=== PATIENT | female | born 1965 | race Caucasian/White ===

== ENCOUNTER 2023-11-30 16:24 | Outpatient (REF) | payer OTHER, SELFPAY ==
--- NOTE | ~2023-11-30 | XR_ITS ---
EXAMINATION: XR CHEST CLINICAL INFORMATION: COUGH COMPARISON: None available. TECHNIQUE: 2 views of the chest were obtained. FINDINGS: Submitted for interpretation on February 08, 2024. Patchy and linear opacity right lower hemithorax. No pneumothorax. No gross pleural effusion. Cardiomediastinal silhouette is normal in size. Calcified plaque thoracic aortic arch. Multilevel thoracic spondylosis. Osteopenia versus osteoporosis. XR/XR chest 2V IMPRESSION: Airspace disease, right lower lung lobe. Recommend follow-up until resolution since underlying neoplasm cannot be excluded. Electronically signed by: Kenrick Fernando MD 02/08/2024 09:49 AM EST
[2023-11-30 16:42] LABS: MANUAL DIFF FLAG NO
[2023-11-30 18:33] LABS: Basophils Absolute Auto 0.1 X10*3/uL (0.0-0.2); Basophils Percent Auto 0.5 % (0-2); Eosinophils Absolute Auto 0.5 X10*3/uL (0.0-0.4); Eosinophils Percent Auto 5.3 % (0-4); Hematocrit 39.1 % (37.0-47.0); Hemoglobin 13.9 g/dl (12.0-16.0); Imm Gran Abs Auto 0.07 X10*3/uL (0.00-0.03); Imm Gran Pct Auto 0.7 % (0.0-0.4); Lymphocytes Absolute Auto 1.4 X10*3/uL (1.2-4.9); Mean Corpuscular HGB Conc 35.5 g/dl (31.0-35.0); Mean Corpuscular Hemoglobin 33.3 pg (27.0-33.0); Mean Corpuscular Volume 93.5 fL (80.0-98.0); Mean Platelet Volume 10.4 fL (9.4-12.3); Monocytes Absolute Auto 0.6 X10*3/uL (0.1-1.2); Monocytes Percent Auto 6.3 % (2-11); Neutrophils Absolute Auto 6.8 x10*3/uL (2.0-8.3); Neutrophils Percent Auto 72.2 % (45-73); Platelet Count 183 X10*3/uL (160-400); Red Blood Count 4.18 X10*6/uL (4.20-5.50); Red Cell Distribution Width 12.5 % (11.0-16.0); White Blood Count 9.5 X10*3/uL (4.8-10.8)
[2023-11-30 18:40] LABS: Anion Gap 15 (12-20); Blood Urea Nitrogen 13 mg/dL (9-16); Calcium 9.4 mg/dL (8.4-10.2); Carbon Dioxide 25 mmol/L (22-29); Chloride 104 mmol/L (96-108); Estimated Glomerular Filt Rate > 60; Glucose Random 109 mg/dL (60-115); Potassium 4.2 mmol/L (3.3-5.1); Sodium 140 mmol/L (135-145)
[2023-12-01 07:41] LABS: Estimated Average Glucose 123 mg/dL; Hemoglobin A1C 143.3844 umol/L; Hemoglobin A1c % 5.9 % (<6.0)
== END 2023-11-30 16:25 | disposition home or self-care (01) ==
LOC: HO.XRAY 16:24
PROVIDERS: PCP Internal Medicine; Visit Provider Internal Medicine
DX: R05.9 Cough, unspecified (principal); R73.03 Prediabetes
CPT/HCPCS: 36415; 71046; 80048; 83036; 85025

== ENCOUNTER → 2023-11-30 16:42 | Outpatient (BNV) | payer OTHER, SELFPAY | PROVIDERS: PCP Internal Medicine; Visit Provider Radiology Diagnostic Radiology | DX: R05.9 Cough, unspecified (principal) | CPT/HCPCS: 71046 ==

== ENCOUNTER 2025-02-14 16:21 | Outpatient (AMB) | payer OTHER, SELFPAY ==
--- NOTE | 2025-02-14 16:32 | MHC.PC.OV ---
Vital Signs 02/14/25 16:41 02/14/25 17:01 Height 5 ft 2 in Weight 84.141 kg BMI 33.9 BP 156/72 H 154/80 H Respiration 16 Pulse 66 Pulse Source Pulse Oximeter Temp 98.0 F Temp Source Temporal Artery Scan Pulse Oximetry (%) 98 Oxygen Delivery Method Room Air Intake Visit Reasons: DANA/Croke - see comments Service Desk Specialist Required: No Accompanied by: Self / Same As Patient Allergies Seasonal Allergies Allergy (Intermediate, Verified 02/14/25 16:37) Unknown Percocet Adverse Reaction (Intermediate, Uncoded 02/14/25 16:37) Abdominal Pain Medication List - Last Reconciled 02/14/25 by MARA Dean amoxicillin-pot clavulanate 875-125 mg 1 tab PO BID cholecalciferol (vitamin D3) 50 mcg PO DAILY [vit b12 PO] vit C-zinc citrate-elderberry 45-3.75-50 mg (Elderberry [facility]) tabs PO Tobacco use date assessed: 02/14/25 Dental Screening Dental Screen Date: 02/14/25 Did you have a dental visit in the last 12 months?: Yes Did you have a dental problem in the last 6 months where you did not have access to dental care?: No Was dental information given to patient?: Patient has dentist HPI HPI Comments History of Present Illness Details 59-year-old female presenting to the office today for annual physical exam and to establish care. She currently lives by herself and with her dog and feels safe there. 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 She has never used cigarettes. Occasional alcohol use. No drug use. Follows a healthy diet. Concerns: URI symptoms ongoing for 1 month. Inititally had URI then in chest. She has been using Sudafed for 24-36 hours which did help somewhat. However, she still has rhinorrhea, PND, mildly productive cough. Right ear feels blocked and there is clear/opaque yellow mucus. Denies any fevers or chills. No significant sinus pressure. Has also been using Flonase but not any antihistamine. No dyspnea, wheezing, chest pains. Reports snoring with question of apneic episodes Health maintenance: Overdue for closing agent, needs referral Overdue for mammogram Eye exam is up-to-date Dental exams twice yearly Colonoscopies Wear sun protection Reviewed past medical, surgical, social, family history ROS: General: No fevers, malaise, unintentional weight loss HEENT: No blurred vision, diplopia. No sore throat, nasal congestion, rhinorrhea, sinus pain, ear pain. No hearing loss Neck - no adenopathy Cardiovascular: No chest pain, palpitations, or leg edema Respiratory: No shortness of breath, wheezing, cough Breast: No pain, palpable lumps, nipple inversion GI: No dysphagia, odynophagia, globus sensation. No abdominal pain, nausea, vomiting, diarrhea, constipation, melena, hematochezia : No dysuria, hematuria, increased urinary frequency, decreased urinary output. 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 No AH/VH. No SI/HI Skin: No rashes or lesions EXAM: Constitutional - Awake and Alert, No apparent distress Eyes - PERRLA, EOMI. Anicteric Ears - external ears normal, canals clear, TMs intact and pearly tucker with good cone of light Nose- septum midline, nares clear, no sinus tenderness Mouth/throat- mucosa moist, tongue and uvula midline, no erythema/edema or tonsillar adenopathy. Neck-trachea midline, thyroid symmetric without palpable nodules, no adenopathy Cardiovascular - S1S2, RRR, No edema Respiratory - Normal lung expansion, Normal respiratory effort, No respiratory distress, CTA bilaterally Gastrointestinal - NT / ND; +BS; No rebound or guarding - No CVA tenderness Extremities - no calf tenderness bilaterally, no swelling Musculoskeletal - Normal inspection, normal ROM Skin - Warm/Dry, no concerning lesions Neurological - Alert & oriented x3, CN II-XII in tact, 5/5 strength BUE and BLE, 2+ patellar reflexes, sensation intact Psychological - Appropriate affect [facility] Medical History (Updated 02/17/25 @ 12:38 by MARA Dean) Vitamin D deficiency Obesity Surgical History (Updated 02/14/25 @ 16:58 by MARA Dean) History of left salpingectomy S/P ectopic History of ankle surgery S/P knee surgery Status post cholecystectomy Family History (Updated 02/17/25 @ 12:37 by MARA Dean) Other No significant family history Social History Housing: House Patient Tobacco Use Status: Never used Tobacco e-Cigarette/Vaping Use: Never Used service: No Current occupational status: employed 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 How often do you have six or more drinks on one occasion?: Never Total Score: 0 Physical exam (Primary Care) Vital Signs: Last Vital Signs Temp 98.0 F 02/14/25 16:41 Pulse 66 02/14/25 16:41 Resp 16 02/14/25 16:41 BP 154/80 H 02/14/25 17:01 Pulse Ox 98 02/14/25 16:41 Oxygen Delivery Method Room Air 02/14/25 16:41 BMI result Body Mass Index 33.9 Tobacco/Smoking Status: Tobacco use Status Tobacco use date assessed 02/14/25 02/14/25 16:40 Patient Tobacco Use Status Never used Tobacco 02/14/25 16:40 e-Cigarette/Vaping Use Never Used 02/14/25 16:40 Coding Level of Care Code New Pt Prev Care 40-64y(74775) Diagnoses Routine medical exam Z00.00 Sinusitis J32.9 Sleep apnea G47.30 Obesity E66.9 Assessment & Plan Assessment & Plan (1) Routine medical exam: Code(s): Z00.00 - Encounter for general adult medical examination without abnormal findings Category: Medical Plan: 59-year-old female presenting for annual exam and to establish care. Plan as below (2) Sinusitis: Code(s): J32.9 - Chronic sinusitis, unspecified Category: Medical Plan: Augmentin prescribed. Recommend nasal rinses. Continue Flonase and add oral antihistamine. (3) Sleep apnea: Code(s): G47.30 - Sleep apnea, unspecified Category: Medical Plan: Sleep study ordered (4) Obesity: Code(s): E66.9 - Obesity, unspecified Category: Medical Plan: Recommend diet lower in calories with increased protein, fruits, vegetables. Limit refined sugars, simple carbohydrates, highly processed foods. Recommend weight-bearing and moderate intensity exercise for at least 150 minutes weekly. Plan Routine screening labs as ordered below screening mammograms, Pap smears, colonoscopies- referrals placed Continue following for annual skin exams and use sun protection Annual eye exams Dental exams every 2 years Wear seat belt in car Recommend regular exercise and healthy diet Follow-up in 2 weeks for blood pressure check Orders: Orders RT home sleep study 02/14/25 E66.9 - Obesity, unspecified, G47.30 - Sleep apnea, unspecified, R06.83 - Snoring XR chest 2V 02/15/25 R05.9 - Cough, unspecified, R93.89 - Abnormal findings on diagnostic imaging of other specified body structures Basic Metabolic Panel 02/15/25 E55.9 - Vitamin D deficiency, unspecified, Z00.00 - Encounter for general adult medical examination without abnormal findings Complete Blood Count Auto Diff 02/15/25 E55.9 - Vitamin D deficiency, unspecified, Z00.00 - Encounter for general adult medical examination without abnormal findings Lipid Panel 02/15/25 E55.9 - Vitamin D deficiency, unspecified, Z00.00 - Encounter for general adult medical examination without abnormal findings Vitamin D 25-OH Total 02/15/25 E55.9 - Vitamin D deficiency, unspecified, Z00.00 - Encounter for general adult medical examination without abnormal findings Hemoglobin A1c 02/15/25 E55.9 - Vitamin D deficiency, unspecified, Z00.00 - Encounter for general adult medical examination without abnormal findings Liver Panel 02/15/25 E55.9 - Vitamin D deficiency, unspecified, Z00.00 - Encounter for general adult medical examination without abnormal findings TSH reflex Free T4 02/15/25 E55.9 - Vitamin D deficiency, unspecified, Z00.00 - Encounter for general adult medical examination without abnormal findings Vitamin B12 02/15/25 E53.8 - Deficiency of other specified B group vitamins MM tomosynthesis screening BI 02/14/25 Z12.31 - Encounter for screening mammogram for malignant neoplasm of breast Referrals 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
[2025-02-14 16:41] VITALS: BP 156/72; PULSE 66; RESP 16; TEMP 36.7; O2SAT 98; BMI 33.9
[2025-02-14 17:01] VITALS: BP 154/80
--- OUTSIDE RECORDS SUMMARY | 2025-02-14 22:56 | XMS_ITS | Clinical Summary ---
Author Organization [facility] Address [address] [facility] [address] [place] [id number] Phone Care Team Providers Care Corporate Tutor Name Role Phone Van Hidalgo MD Primary Care Provider Allergies No known active allergies Medications naproxen (NAPROSYN) 250 MG tablet Take 250 mg by mouth 2 (two) times a day with meals. Active cetirizine (ZYRTEC) 10 MG tablet Take 10 mg by mouth daily. Active fluticasone propionate (FLONASE) 50 mcg/actuation nasal spray 1 spray by Nasal route daily. Active methylPREDNISol one (MEDROL DOSEPACK) 4 mg tablet follow package directions 21 tablet 4 Active Active Problems No known active problems Immunizations Immunization Administration Dates Next Due Tdap 03/07/2016 Social History Tobacco Use Types Packs/Day Years Used Date Smoking Tobacco: Never Smokeless Tobacco: Never Tobacco Cessation:Counseling Given: Not Answered Alcohol Use Standard Drinks/Week Comments Yes 0 (1 standard drink = 0.6 oz pur e alcohol) socially Education Answer Date Recorded Are you interested in more education? Not on nasim e 07/04/2022 Are you concerned about learning? Not on file 07/04/2022 No 07/04/2022 No 07/04/2022 Digital Access Answer Date Recorded No 08/02/2022 No 08/02/2022 Reliable internet access at home? Not on file 08/02/2022 Device with a working camera? Not on file Comments Unknown Sex and Gender Information Value Date Recorded Sex Assigned at Not on file Legal Sex Female 5:13 PM EDT Gender Identity Not on file Sexual Orientation Not on file Last Filed Vital Signs Vital Sign Reading Time Taken Comments Blood Pressure 164/95 02/12/2024 10:27 AM EST Pulse 63 02/12/2024 10:27 AM EST Temperature 36.7 C (98 F) 02/12/2024 10:27 AM EST Respiratory Rate 18 02/12/2024 10:27 AM EST Oxygen Saturation 98% 02/12/2024 10:27 AM EST Inhaled Oxygen Concentration - - Weight 84.4 kg (186 lb) 03/05/2022 5:07 PM EST Height 157.5 cm (5' 2 ) 03/05/2022 5:07 PM EST Body Mass Index 34.02 03/05/2022 5:07 PM EST Plan of Treatment Health Maintenance Due Date Last Done Comments LIPID PANEL 1963 DEPRESSION SCREENING 1975 HEPATITIS C SCREENING 06/22/1981 HIV ONE-TIME SCREENING (18-6 5 YEARS) 06/22/1981 PAP SMEAR 06/22/1984 SCREENING FOR DIABETES 06/22/1998 MAMMOGRAM 2003 COLOGUARD 06/22/2008 COLONOSCOPY 06/22/2008 COLORECTAL CANCER SCREENING 06/22/2008 FIT TEST 06/22/2008 FOBT 06/22/2008 SIGMOIDOSCOPY 06/22/2008 VIRTUAL COLONOSCOPY 06/22/2008 PNEUMOCOCCAL VACCINES (50+ y ears) (1 of 1 - PCV) 06/22/2013 ZOSTER VACCINES (1 of 2) 06/22/2013 INFLUENZA VACCINE (#1) 2024 COVID-19 VACCINE (2 - 2024-2 6 season) 2024 07/13/2020 Adult Td,Tdap Booster 03/07/2026 03/07/2016 RSV VACCINE (1 - 1-dose 75+ series) 06/22/2038 SMOKING STATUS SCREENING (On ce After 26 Yrs) Completed 02/12/2024 HEPATITIS A VACCINES Aged Out No long er eligible based on patient's age to complete this topic HIB VACCINES Aged Out No longer eligi ble based on patient's age to complete this topic MENINGOCOCCAL VACCINES (ACWY) Aged Out No longer eligible based on patient's age to complete this topic MENINGOCOCCAL VACCINES (B) Aged Out N o longer eligible based on patient's age to complete this topic Medical Devices Not on file Insurance O O O O O O O HMO Care Teams Corporate Tutor Relationship Specialty Start Date End Date Van Hidalgo MD [address] [place] [id number] PCP - General Internal Medicine 12/02/18 Additional Source Comments The information contained in this document represents components of the legal health record. It is not the complete legal health record.[facility]
--- OUTSIDE RECORDS SUMMARY | 2025-02-14 22:56 | XMS_ITS | Data Portability ---
Author Organization MARA Donovan [facility] [address] Address [address] [place] [address] Assessment Encounter Date Assessment Date Assessment LastModified by Organization Details LastModified Time 11/23/2023 11/23/2023 Acute bronchitis is a common clinical condition characterized by an acute onset but persistent cough, with or without sputum production. It is typically self-limited, resolving within one to three weeks. Symptoms result from inflammation of the lower respiratory tract and are most frequently due to viral infection. Treatment is focused on patient education and supportive care. Antibiotics are not needed for the great majority of patients with acute bronchitis but are greatly overused for this condition. Reducing antibiotic use for acute bronchitis is a national and international health care priority. In most patients, the cough persists for 1 to 3 weeks, with a average duration of 18 days. The cough may be associated with either purulent or nonpurulent sputum production The presence of purulent sputum is a nonspecific finding and does not appear to be predictive of bacterial infection or that antibiotics are needed. For the great majority of patients, use of antibiotics does not hasten recovery or prevent complications but puts patients at increased risk of adverse effects including potentially severe complications such as Clostridioides difficile infection and anaphylaxis. Non-Pharmacological treatment for coughin. Throat lozenges 2. Hot tea 3. Honey 4. Smoking cessation 5. Avoidance of secondhand smoke. Pharmacological Treatment: 1. Robatussin or Guafenasin 2. Antihistamines 3. Dextromethoraphen I would plan on being seen again if any of the following symptoms develop: 1. Fever (100.5) 2. Shortness of breath 3. Wheezing 4. Worsening Cough. I would go to the ER if you develop: 1. Severe Shortness of breath 2. Chest Pain 3. Wheezing 4. Coughing up Blood ronchaga Not available 11/23/2023 09:42:40 Plan of Treatment Reminders Order Date Submit Date Provider Last Modified By Organization Details Last Modified Time Details Appointments None recorded. Lab SARS CoV 2 (COVID-19) Ag, QL, IA, upper respiratory specimen 2023 024 [address], [address] [place], [address], 4 09:43:09 Referral None recorded. Procedures None recorded. Surgeries None recorded. Imaging None recorded. Medication Orders prednisone 50 mg tablet 2023 024 [facility] #[id number], [address] [place], [address], 4 09:43:20 benzonatate 200 mg capsule 2023 024 [id number] [address] [place], [address], 4 09:43:18 albuterol sulfate HFA 90 mcg/actuati on aerosol inhaler 2023 024 [id number] [address] [place], [address], 4 09:43:19 Patient TargetsNo targets recorded. Patient Instructions Encounter Date Encounter Id Patient Instructions Last Modified By Organization Details Last Modified Time 11/23/2023 [id number] bronchitis: care instructions ronchaga Not available 11/23/2023 09:43:06 cough: care instructions ronchaga Not available 11/23/2023 09:43:06 Reason for Referral None Reported. Results Created Date Observation Date Name Description Value Unit Range Abnormal Flag Note LastModifiedBy Organization Detail LastModifiedTime 11/23/19 24 11/23/2023 SARS CoV 2 (COVI D-19) Ag, QL, IA, upper respi rator y speci men Unknown Analyte negati ve Not Available [address] [place], [address], 11/23/2023 08:55:26 11/23/19 24 11/23/2023 SARS CoV 2 (COVI D-19) Ag, QL, IA, upper respi rator y speci men Unknown Analyte yes Not Available [address] [place], [address], 11/23/2023 08:55:26 Result Notes None recorded. Problems Name Problem SNOMED Code Status Onset Date Resolution Date Notes Provider Name and Address Organization Details Recorded Time Seasonal allergy 463653991 Active Breanna Brenda null, [place] - [facility] 4 08:53:44 Bronchitis 00115616 Active 024 JEN HUTSON NP [address] , [place], [address], [place] - [facility] 4 09:41:48 Cough 89427659 Active 024 JEN HUTSON NP [address] , [place], [address], [place] - [facility] 4 09:42:20 Problem Notes None recorded. Procedures Surgical History Date Name Laterality Status Provider Name and Address Organization Details Recorded Time cholecystectomy completed Breanna Brenda PA - [facility] 11/23/2023 08:54:22 procedure on knee completed Breanna Brenda PA - [facility] 11/23/2023 08:54:49 Imaging Results None recorded. Procedure Notes None recorded. Medical Equipment None Reported. Allergies No known drug allergies Medications Name Sig Start Date Stop Date Status Note LastModified by Organization Details LastModified Time benzonatate 200 mg capsule Take 1 capsule 3 times a day by oral route for 7 days. 2023 active Not Available Not Available Not Avai lable prednisone 50 mg tablet Take 1 tablet every day by oral route for 5 days. 2023 active Not Available Not Available Not Avai lable albuterol sulfate HFA 90 mcg/actuatio n aerosol inhaler Inhale 2 puffs every 4 hours by inhalation route for 5 days. 2023 active Not Available Not Available Not Avai lable Vitals Date Recorded Body height Body mass index (BMI) Body weight Body temperature Oxygen saturation Heart rate Respiratory rate Systolic And Diastolic Provider Name and Address Organization Details Last Updated DateTime 4 157.48 cm 32.2 kg/m2 35667.2 6 g 98.2 [degF] 97 % 68 /min 17 /min 148/80 mm[Hg] Breanna Brenda PA - [facility] 4 08:56:33 Social History Question Answer Notes LastModified by Fabbeo Details LastModified Time Tobacco Smoking Status Never Smoker Breanna Brenda null, [place] - [facility] 11/23/2023 08:54:02 Have You Recently Traveled Abroad? No Information not available 11/23/2023 Sex: Unknown Functional Status Question Answer Note LastModified by Fabbeo Details LastModified Time Do you use any illicit or recreational drugs? No Information not available 11/23/2023 Do you or have you ever used any other forms of tobacco or nicotine? No Information not available 11/23/2023 What is your level of alcohol consumption? Occasional Information not available 11/23/2023 Are you currently employed? Yes Information not available 11/23/2023 Mental Status None recorded. Family History Nothing Reported. Medical History No medical history recorded. Gynecological History Statement/Question Response Is there any chance of ? No LMP N/A Obstetrics History GPAL:G 0 P 0 0 0 0 Immunizations Vaccine Type Date Status Note Provider Nam e and Address Organization Details Recorded Time COVID-19, mRNA, LNP-S, PF, 30 mcg/0.3 mL dose 07/13/2020 completed Breanna Brenda null, PA - [facility] 11/23/2023 08:53:31 Tdap 03/07/2016 completed Breanna Brenda null, PA - [facility] 11/23/2023 08:53:31 Past Encounters Encounter ID Performer Location Encounter Start Date Encounter Closed Date Diagnosis/Indication Diagnosis SNOMED-CT Code Diagnosis ICD10 Code Diagnosis IMO Codes [id number] [facility] [address] [address] 04/20/2020 11:50:20 04/20/2020 12:57:20 [id number] MARA YOUNG [address] [address] 11/23/2023 08:41:45 11/23/2023 09:45:53 Bronchitis 34695908 J40 Cough 66518595 R05.9 Health Concerns Section Related Observation LastModified by Organization Detai ls LastModified Time None Recorded Concern Status LastModified by Organization Details LastModified Time None Recorded Advance Directives Directive None Recorded Payers Insurance Date Sequence Insurance Name Policy Number Policy Whitt Covered Member ID Whitt Member ID Guarantor Name 11/23/[address] [place] [address] [place] [place] [id number] Joyce Busby [id number] Joyce Busby 11/23/2023 1 [facility] Joyce uBsby [id number] Joyce Busby Notes Date Note Type Note Provider Name and Address Organization Details Recorded Time 11/23/2023 text/html CoughReported by PatientHPIFor quality, patient reportsharsh,barkmitzy , andchioma. For severity, patient reportsmoderate. For duration, patient [email or web address] days. For timing, patient reportsgradual. 58 yo female here with 10 day cough, hacking, no fever and no chillsbeen taking dayquilcough worse at nightinitially had a uri that has resolved but cough is lingeringno fever and no chills JEN HUTSON NP [address] [place], [address], [place] - [facility] 11/23/2023 09:43:30 OBGyn Episode No OBEpisode recorded.
--- OUTSIDE RECORDS SUMMARY | 2025-02-14 22:57 | XMS_ITS | Patient Health Record ---
Author Organization [facility] Address [address] [place] [address] Care Team Providers Care Tone Regulator Name Role Phone Van Hidalgo MD Primary Care Provider Unavaila alexandrea Laura Root Unavailable [phone] Reason For Referral No Information Medications Medication SIG (Take, Route, Fr equency, Duration) Notes Start Date End Date Status Ibuprofen 800 MG 1 tablet Orally Thre e times a day; Duration: 30 day(s) 05/24/2019 Active Naproxen Active ZyrTEC Allergy 10 MG 1 tablet Orally Onc e a day; Duration: 30 day(s) PRN Active Problems Problem Type SNOMED Code ICD Code Onset Dates Problem Status W/U Status Risk Notes 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 Plan Of Treatment Pending Test Test Name Order Date X ray : Foot, left 3V 05/24/2019 Insurance Providers Payer Name Payer Address Payer Phone Subscriber Number Group Number Insured Name Patient Relationship to Insured Coverage Start Date Coverage End Date [place] [address] [place] [phone] [id number] Joyce Busby Self - patient is the insured Medical (General) History Medical History History ICD Code Back,Hip,and Knee pain Gall bladder problems Gout Headaches/Migraines Reflux ( GERD) Mumps Chicken pox Surgical History Surgery Date(Month/Year) gall bladder ectopic heel surgery-reconstuctive knee surgery-removed bone chips
== END 2025-02-14 17:15 | disposition home or self-care (01) ==
LOC: HO.HMCHD 16:22
PROVIDERS: PCP Internal Medicine; Visit Provider Physician Assistant
DX: Z00.00 Encounter for general adult medical examination without abnormal findings (principal); J32.9 Chronic sinusitis, unspecified; G47.30 Sleep apnea, unspecified; E66.9 Obesity, unspecified

== ENCOUNTER 2025-02-15 16:09 | Outpatient (REF) | payer OTHER, SELFPAY ==
--- NOTE | ~2025-02-15 | XR_ITS ---
EXAMINATION: XR CHEST CLINICAL INFORMATION: R05.9 - Cough, unspecified COMPARISON: Chest radiographs of November 30, 2023 TECHNIQUE: 2 views of the chest were obtained. FINDINGS: Lungs: No focal consolidation or evidence of pulmonary edema. Pleura: No pleural effusion or pneumothorax. Heart/Mediastinum: Cardiomediastinal silhouette is within normal limits. Bones: No acute findings. XR/XR chest 2V IMPRESSION: No acute cardiopulmonary process. Electronically signed by: Jade Weaver MD 02/15/2025 04:32 PM EST
[2025-02-15 16:40] LABS: MANUAL DIFF FLAG NO
[2025-02-15 17:11] LABS: Hematocrit 38.2 % (37.0-47.0); Hemoglobin 13.7 g/dl (12.0-16.0); Imm Gran Abs Auto 0.02 X10*3/uL (0.00-0.03); Imm Gran Pct Auto 0.4 % (0.0-0.4); Lymphocytes Absolute Auto 1.4 X10*3/uL (1.2-4.9); Mean Corpuscular HGB Conc 35.9 g/dl (31.0-35.0); Mean Corpuscular Hemoglobin 33.6 pg (27.0-33.0); Mean Corpuscular Volume 93.6 fL (80.0-98.0); NRBC Abs Auto 0.000 X10*3/uL (0.0-0.012); NRBC Pct Auto 0.0 /100WBC (0.0-0.2); Platelet Count 134 X10*3/uL (160-400); Red Blood Count 4.08 X10*6/uL (4.20-5.50); White Blood Count 5.1 X10*3/uL (4.8-10.8)
[2025-02-15 17:38] LABS: Alanine Aminotransferase 26 U/L (0-31); Albumin Level 4.7 g/dL (3.5-5.0); Alkaline Phosphatase 89 U/L (39-117); Anion Gap 11 (12-20); Aspartate Amino Transferase 35 U/L (5-31); Blood Urea Nitrogen 15 mg/dL (9-16); Calcium 9.6 mg/dL (8.4-10.2); Carbon Dioxide 29 mmol/L (22-29); Chloride 107 mmol/L (96-108); Cholesterol 190 mg/dL (<200); Estimated Glomerular Filt Rate > 60; HDL Cholesterol 58 mg/dL (>40); Potassium 4.4 mmol/L (3.3-5.1); Sodium 143 mmol/L (135-145); Total Protein 7.9 g/dL (6.5-8.0); Triglycerides 132 mg/dL (<150)
[2025-02-15 17:59] LABS: Vitamin B12 640 pg/mL (200-900)
--- OUTSIDE RECORDS SUMMARY | 2025-02-16 00:48 | XMS_ITS | Patient Health Record ---
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 Plan Of Treatment Pending Test Test Name Order Date X ray : Foot, left 3V 05/24/2019 Insurance Providers Payer Name Payer Address Payer Phone Subscriber Number Group Number Insured Name Patient Relationship to Insured Coverage Start Date Coverage End Date [employer] [place] [address] [place] [phone] [id number] Joyce Busby Self - patient is the insured Medical (General) History Medical History History ICD Code Back,Hip,and Knee pain Gall bladder problems Gout Headaches/Migraines Reflux ( GERD) Mumps Chicken pox Surgical History Surgery Date(Month/Year) gall bladder ectopic heel surgery-reconstuctive knee surgery-removed bone chips
--- OUTSIDE RECORDS SUMMARY | 2025-02-16 00:48 | XMS_ITS | Clinical Summary ---
Author Organization [facility] Address [address] [place] [id number] Phone Care Team Providers Care Surveillance Observer Name Role Phone Van Hidalgo MD Primary [...] O O O O HMO Care Teams Surveillance Observer Relationship Specialty Start Date End Date Van Hidalgo MD [address] [place] [id number] PCP - General Internal Medicine 12/02/18 Additional Source Comments The information contained in this document represents components of the legal health record. It is not the complete legal health record.[facility]
== END 2025-02-15 16:10 | disposition home or self-care (01) ==
LOC: HO.XRAY 16:09
PROVIDERS: PCP Physician Assistant; Visit Provider Physician Assistant
DX: Z00.00 Encounter for general adult medical examination without abnormal findings (principal); E53.8 Deficiency of other specified B group vitamins; R05.9 Cough, unspecified; R93.89 Abnormal findings on diagnostic imaging of other specified body structures; E55.9 Vitamin D deficiency, unspecified; Z13.6 Encounter for screening for cardiovascular disorders; Z13.1 Encounter for screening for diabetes mellitus
CPT/HCPCS: 36415; 71046; 80048; 80061; 80076; 82306; 82607; 83036; 84443; 85025

== ENCOUNTER → 2025-02-15 16:14 | Outpatient (BNV) | payer OTHER, SELFPAY | PROVIDERS: PCP Physician Assistant; Visit Provider Radiology Body Imaging | DX: R05.9 Cough, unspecified (principal) | CPT/HCPCS: 71046 ==

== ENCOUNTER → 2025-02-28 09:11 | Outpatient (BNVA) | payer OTHER, SELFPAY | PROVIDERS: PCP Physician Assistant | DX: Z01.89 Encounter for other specified special examinations (principal) ==